=== PATIENT | male | born 1955 | race Caucasian/White ===

== ENCOUNTER 2023-03-15 12:41 | Outpatient (AMB) | payer MEDICARE, SELFPAY ==
--- NOTE | 2023-03-15 13:27 | MHC.OFFWIV ---
Intake Vital Signs 03/15/23 13:28 Height 5 ft 10 in Weight 187 lb BMI 26.8 BP 130/70 Blood Pressure Location Rt brachial Position Sitting Pulse 90 Pulse Source Pulse Oximeter Temp 97.3 F Temp Source Temporal Artery Scan Pulse Oximetry (%) 98 Oxygen Delivery Method Room Air Intake Visit Reasons: [employer]/sinus infection? (lobby) Intake Note: pt is here today for sinus infection Allergies codeine Allergy (Verified 03/15/23 13:58) Anaphylaxis Do you need a note to return to daycare/school/sports/work: Yes HPI [employer]/sinus infection? (lobby) HPI Details A 67-year-old male patient presents today with a one-week history of right-sided sinus pressure, nasal congestion, right ear pressure. Denies any cough or shortness of breath. Denies any fever or chills. Denies GI symptoms. Reports he recently had a chipped tooth, and went to the dentist yesterday where they repaired this and took x-rays, which did not reveal any odontogenic infection. Review of Systems Const All systems reviewed & are unremarkable except as noted in HPI and below Physical Exam Vital Signs: Last Vital Signs Temp 97.3 F 03/15/23 13:28 Pulse 90 03/15/23 13:28 BP 130/70 03/15/23 13:28 Pulse Ox 98 03/15/23 13:28 Oxygen Delivery Method Room Air 03/15/23 13:28 BMI result Body Mass Index 26.8 Const General: cooperative, healthy appearing and no acute distress HEENT Head: Yes normal to inspection Ears: hearing grossly normal bilaterally, external ears normal, TM normal on the left and TM abnormal (Right TM slightly erythematous, no effusion) General nose exam: Normal external nose present Face and sinus: Yes sinus tenderness (Maxillary) Mouth: Normal oral and palatal mucosa present and moist mucous membranes abnormal Throat: Yes posterior oropharynx abnormal (Mild erythema) and Yes tonsils absent Neck Neck: Yes no lymphadenopathy Resp Effort & Inspection: normal respiratory effort and able to speak in complete sentences Auscultation: clear to auscultation bilaterally Cardio Jugular venous distension: no JVD Palpation: normal PMI Rate: regular rate Rhythm: regular rhythm Skin General skin exam: no rashes or lesions noted Extrem General: Yes capillary refill normal and Yes no clubbing, cyanosis or edema Psych Appearance: grossly normal Mental Status: mental status grossly normal Speech and movement: Normal speech and movement present Assessment & Plan Assessment & Plan (1) Acute sinusitis: Code(s): J01.90 - Acute sinusitis, unspecified Qualifiers: Sinusitis location: maxillary Recurrence: non-recurrent Qualified Code(s): J01.00 - Acute maxillary sinusitis, unspecified Plan: Will start patient on azithromycin. Reviewed indications, use, possible side effects. Advised to return to clinic if he does not improve treatment, or if new symptoms develop. He verbalizes understanding and agrees to plan. Medications: New azithromycin For 250 mg dose pack: take 500 mg today (day 1), then 250 mg for 4 days (days 2-5) PO 6 tabs 0RF J01.00 - Acute maxillary sinusitis, unspecified Coding Level of Care Code Est Pt Level 3 (99386) Diagnoses Acute non-recurrent maxillary sinusitis J01.00 Sinusitis location: maxillary Recurrence: non-recurrent
[2023-03-15 13:28] VITALS: BP 130/70; PULSE 90; TEMP 36.3; O2SAT 98; BMI 26.8
== END 2023-03-15 14:00 | disposition home or self-care (01) ==
PROVIDERS: Visit Provider Nurse Practitioner Family
DX: J01.00 Acute maxillary sinusitis, unspecified (principal)
CPT/HCPCS: 99213